=== PATIENT | female | born 1970 | race Caucasian/White ===

== ENCOUNTER 2023-11-28 10:22 | Emergency (ER) | payer MEDICAID ==
[~2023-11-28] VITALS: Ht 157.5 cm; Wt 65.8 kg
[2023-11-28 10:27] VITALS: BP 136/55; PULSE 75; RESP 16; TEMP 98; O2SAT 98
--- NOTE | 2023-11-28 10:27 | NUR ---
BIBA BLS TO ER BED 2
--- NOTE | 2023-11-28 10:30 | NUR ---
53 YO F; NKA; PMHX SEIZURES,SCHIZOPHRENIA,ENCEPHALITIS; [facility] PER MOM PT WAS WALKING AND KNEES GAVE OUT AND FELL ON HER KNEES THEN BACKWARDS HITTING HER HEAD, DENIES LOC PER MOM. DENIES N/V/D; SKIN IS PINK/WARM/DRY; AAOX1 BASELINE ONLY TO HER NAME, PT IS AMBULATORY, USES KNEE BRACES; LUNGS CLEAR BL; HR EVEN AND REGULAR; PT DENIES ANY FEVER, CP, SOB, OR COUGH AT THIS TIME; PAIN UNOBTAINABLE; VSS; PATIENT POSITIONED FOR COMFORT; HOB ELEVATED; CALL LIGHTIN WITHIN REACH; MOM KAYLIN AT BEDSIDE; BEDRAILS UP X2; BED DOWN. ER MD MADE AWARE OF PT STATUS.
--- NOTE | 2023-11-28 12:12 | NUR ---
PT TAKEN OFF UNIT TO CT-SCAN.
--- NOTE | 2023-11-28 12:40 | NUR ---
CURRENTLY PENDING CT-SCAN RESULTS.
[2023-11-28 12:53] LABS: HEMATOCRIT 38.1 % (36-48); HEMOGLOBIN 12.6 g/dL (12.0-16.0); MEAN CORPUSCULAR HEMOGLOBIN 34 pg (27-31); MEAN CORPUSCULAR HGB CONC 33 g/dL (33-37); MEAN CORPUSCULAR VOLUME 102.1 fL (80-94); PLATELET COUNT (AUTO) 162 K/uL (140-450); RED BLOOD CELL COUNT(AUTO) 3.73 MIL/uL (4.20-5.40); RED CELL DISTRIBUTION WIDTH 14.7 % (11.6-13.7); WHITE BLOOD COUNT (AUTO) 5.5 K/uL (4.8-10.8)
[2023-11-28 13:19] LABS: ALBUMIN 3.5 g/dL (3.4-5.0); ANION GAP 9.1 (8-16); CALCIUM 9.7 mg/dL (8.5-10.1); CREATININE 0.8 mg/dL (0.6-1.3); POTASSIUM 4.3 mmol/L (3.5-5.1); TOTAL BILIRUBIN 0.4 mg/dL (0.0-1.0); TOTAL PROTEIN, SERUM 7.9 g/dL (6.4-8.2)
[2023-11-28 13:50] LABS: BASOPHILS % (MANUAL) 0 % (0-2); EOSINOPHILS % (MANUAL) 0 % (0-4); LYMPHOCYTES % (MANUAL) 77 % (20-46); METAMYELOCYTES % 0 % (0-0); MONOCYTES % (MANUAL) 5 % (5-12)
[2023-11-28 13:51] LABS: BLASTS, MANUAL % 0 % (0-0); MYELOCYTES % 0 % (0-0); OTHER CELLS,MANUAL % 0 (0-0); PLASMA CELLS 0; PLATELET ESTIMATE ADEQUATE; PROMYELOCYTES % 0 % (0-0); SMUDGE CELLS 0
[2023-11-28 14:20] LABS: ACETAMINOPHEN < 0.5 ug/ml (10-30); ALCOHOL, BLOOD < 3 mg/dL (<10); SALICYLATE < 2.8 mg/dL (2.8-20.0)
[2023-11-28 14:40] VITALS: TEMP 97.2
--- NOTE | 2023-11-28 14:40 | NUR ---
PT ON BED SPARKS TRYING TO PROVIDE UA SAMPLE.
--- NOTE | 2023-11-28 14:43 | NUR ---
PT'S MOTHER AT BS. MOTHER INSTRUCTED TO USE CALL LIGHT WHEN PT IS DONE USING BEDPAN.
[2023-11-28 15:38] LABS: APPEARANCE,URINE CLEAR (CLEAR); BILIRUBIN,URINE NEGATIVE (NEGATIVE); BLOOD, URINE NEGATIVE (NEGATIVE); COLOR,URINE YELLOW (YELLOW); LEUKOCYTE ESTERASE ,URINE NEGATIVE (NEGATIVE); NITRITE, URINE NEGATIVE (NEGATIVE); PH,URINE 6.5 (5.0-9.0); PROTEIN,URINE NEGATIVE (NEGATIVE); UGLUCOSE NEGATIVE (NEGATIVE)
[2023-11-28] MEDS ORDERED: ACET500T99 PO (15:55)
--- NOTE | 2023-11-28 17:50 | NUR ---
CALLED FAMILY AT #[phone], NO ANSWER LEFT MSG TO RETURN CALL TO OUR OFFICE
--- NOTE | 2023-11-28 17:56 | NUR ---
ATTEMPTED TO MAKE CONTACT WITH THE PT'S MOTHER TO COME AND CHAIN BUILDER PT SINCE SHE HAS BEEN DISCHARGED. NO ANSWER, UNABLE TO LEAVE MESSAGE. PT RESTING IN BED WITHOUT DISTRESS.
[2023-11-28 17:59] VITALS: BP 127/81; PULSE 66; RESP 16; O2SAT 99
--- NOTE | 2023-11-28 18:40 | NUR ---
3RD ATTEMPT TO CONTACT MOTHER, NO ANSWER
--- NOTE | 2023-11-28 19:37 | NUR ---
PT WAS ENDSORSED TO CHARGE NURSE PETER HERR IN STABLE CONDITION. PT DISCHARGED AWAITING FOR FAMILY TO RETURN TO THE ER TO TAKE PT HOME.
--- NOTE | 2023-11-28 20:26 | NUR ---
SPOKE WITH [facility]. NEED OFFICER TO MAKE CONTACT WITH MOTHER SO PT CAN RETURN HOME. DISPATCH WILL SEND OFFICER TO HOME AND ATTEMPT CONTACT TO SEND MOTHER TO HOSPITAL AND OR TO CALL SO THAT WE MAY GET THE PT HOME SAFE.
--- NOTE | 2023-11-28 21:05 | NUR ---
[facility] REGARD[facility] GETTING AH[facility] OF FAMILY OR NEXT OF KIN FOR THE PATIENT. DEPUTY POSEY WILL CALL BACK WHEN HE HAS MORE INFORMATION.
--- NOTE | 2023-11-28 21:40 | NUR ---
RETURN CALL FROM PT SISTER WHO SPOKE WITH [facility]YAN. TOLD WILL HEAD OVER TO THE ER
--- NOTE | 2023-11-28 22:19 | NUR ---
SISTER AT BEDSIDE
--- NOTE | 2023-11-28 22:20 | NUR ---
FAMILY AT BEDSIDE TO TAKE PATIENT HOME. UPDATED INFORMATION GIVEN TO REGISTRATION SO THEY CAN UPDATE DEMOGRAPHIC.
--- NOTE | 2023-11-28 22:22 | NUR ---
Written and verbal after care instructions given and explained. Patient verbalized understanding. Ambulatory with by parent. All questions addressed prior to discharge. Advised to follow up with PMD.
== END 2023-11-28 22:22 | disposition home or self-care (01) ==
LOC: MED 10:22
DX: S06.0X0A Concussion without loss of consciousness, initial encounter (principal); S80.01XA Contusion of right knee, initial encounter; F20.9 Schizophrenia, unspecified; Z86.69 Personal history of other diseases of the nervous system and sense organs; Z79.899 Other long term (current) drug therapy; W01.198A Fall on same level from slipping, tripping and stumbling with subsequent striking against other object, initial encounter; Y92.89 Other specified places as the place of occurrence of the external cause; Y93.89 Activity, other specified; Y99.8 Other external cause status
CPT/HCPCS: 36415; 70450; 72125; 73562; 80053; 81003; 84484; 85025; 93005; 99285; G0480; G0482